=== PATIENT | female | born 1960 | race Caucasian/White ===

== ENCOUNTER 2019-01-16 12:33 | Emergency (ER) | payer MEDICAID ==
[~2019-01-16] VITALS: Ht 152.4 cm; Wt 50.5 kg
[2019-01-16 12:39] VITALS: BP 147/117
[2019-01-16] MEDS ORDERED: ipratropium/albuterol 3ml nebule NEB ONE (12:55)
[2019-01-16 13:04] LABS: BASOPHILS # (AUTO) 0.2 X10'3 (0-0.2); BASOPHILS % (AUTO) 1.7 % (0-1); EOSINOPHILS # (AUTO) 0.3 X10'3 (0-0.9); EOSINOPHILS % (AUTO) 3.6 % (0-6); HEMATOCRIT 41.3 % (35.0-45.0); HEMOGLOBIN 13.8 g/dl (12.0-16.0); LYMPHOCYTES # (AUTO) 2.7 X10'3 (1.1-4.8); LYMPHOCYTES % (AUTO) 28.5 % (21-51); MEAN CORPUSCULAR HEMOGLOBIN 33.7 PG (27.0-31.0); MEAN CORPUSCULAR HGB CONC 33.4 g/dL (33.0-36.5); MEAN CORPUSCULAR VOLUME 100.9 FL (78-98); MEAN PLATELET VOLUME 7.7 FL (7.4-10.4); MONOCYTES # (AUTO) 0.6 X10'3 (0-0.9); MONOCYTES % (AUTO) 6.2 % (2-12); NEUTROPHILS # (AUTO) 5.7 X10'3 (1.8-7.7); PLATELET COUNT 407 X10'3 (140-440); RED BLOOD COUNT 4.09 X10'6 (4.20-5.60); RED CELL DISTRIBUTION WIDTH 13.5 % (11.5-14.5); WHITE BLOOD COUNT 9.5 X10'3 (4.5-11.0)
[2019-01-16 13:12] LABS: ALANINE AMINOTRANSFERASE 27 U/L (12-78); ALBUMIN 3.5 G/DL (3.4-5.0); ALKALINE PHOSPHATASE 68 IU/L (46-116); ANION GAP 10 (8-16); ASPARTATE AMINO TRANSFERASE 21 U/L (10-37); BILIRUBIN,TOTAL 0.2 MG/DL (0.1-1.0); BLOOD UREA NITROGEN 14 MG/DL (7-18); BUN/CREATININE RATIO 12.4 (6.6-38.0); CALCIUM 9.1 MG/DL (8.5-10.1); CHLORIDE 106 MMOL/L (99-107); CREATININE 1.13 MG/DL (0.40-0.90); GLUCOSE 156 MG/DL (70-104); PARTIAL THROMBOPLASTIN TIME 25 SECONDS (22-32); POTASSIUM 5.2 MMOL/L (3.5-5.1); SODIUM 138 MMOL/L (135-145); eGFR 50 ML/MIN
[2019-01-16] MEDS ORDERED: KAY15L PO (13:22)
[2019-01-16] MEDS ORDERED: ALBU18HF2 INH (13:22)
== END 2019-01-16 13:44 | disposition home or self-care (01) ==
LOC: ER 12:34
DX: J80 Acute respiratory distress syndrome (principal); R42 Dizziness and giddiness; E11.9 Type 2 diabetes mellitus without complications; F12.90 Cannabis use, unspecified, uncomplicated; F17.200 Nicotine dependence, unspecified, uncomplicated; Z88.0 Allergy status to penicillin; Z79.899 Other long term (current) drug therapy; Z86.19 Personal history of other infectious and parasitic diseases
CPT/HCPCS: 36415; 71045; 80053; 84484; 85025; 85610; 85730; 93005; 94640; 94760; 99284

== ENCOUNTER 2023-03-08 08:16 | Emergency (ER) | payer MEDICAID ==
[~2023-03-08] VITALS: Ht 152.4 cm; Wt 47.4 kg
[~2023-03-08 08:16] MED LIST: ALBU18HF2 INH
[2023-03-08 08:20] VITALS: BP 166/70; PULSE 104; RESP 16; TEMP 98; O2SAT 99
[2023-03-08] MEDS ORDERED: PRED20TA PO (16:13)
== END 2023-03-08 13:01 | disposition left against medical advice (07) ==
LOC: ER 08:17
DX: S16.1XXA Strain of muscle, fascia and tendon at neck level, initial encounter (principal); E11.9 Type 2 diabetes mellitus without complications; F17.200 Nicotine dependence, unspecified, uncomplicated; F12.90 Cannabis use, unspecified, uncomplicated; Z88.0 Allergy status to penicillin; Z79.899 Other long term (current) drug therapy; W19.XXXA Unspecified fall, initial encounter; Y93.89 Activity, other specified; Y92.89 Other specified places as the place of occurrence of the external cause; Y99.8 Other external cause status
CPT/HCPCS: 99283

== ENCOUNTER 2024-02-22 14:41 | Emergency (ER) | payer MEDICAID ==
[~2024-02-22] VITALS: Ht 149.9 cm; Wt 49.0 kg
[2024-02-22 14:57] VITALS: TEMP 97.8
[2024-02-22] MEDS ORDERED: HYDR-3965 PO (16:25)
[2024-02-22] MEDS ORDERED: ONDA-243 PO (16:25)
[2024-02-22 16:42] VITALS: BP 124/62; PULSE 84; RESP 18; O2SAT 98
== END 2024-02-22 16:45 | disposition home or self-care (01) ==
LOC: ER 14:42
DX: S22.32XA Fracture of one rib, left side, initial encounter for closed fracture (principal); E11.9 Type 2 diabetes mellitus without complications; F12.90 Cannabis use, unspecified, uncomplicated; Z88.0 Allergy status to penicillin; Z79.899 Other long term (current) drug therapy; W19.XXXA Unspecified fall, initial encounter; Y93.89 Activity, other specified; Y92.89 Other specified places as the place of occurrence of the external cause; Y99.8 Other external cause status
CPT/HCPCS: 71101; 72070; 72100; 99284